=== PATIENT | female | born 1980 | race Caucasian/White ===

== ENCOUNTER 2017-06-27 10:26 | Inpatient (IN) | payer OTHER ==
[2017-06-27] MEDS ORDERED: PANTOPRAZOLE SODIUM 40 MG in SODIUM CHLORIDE 100 ML IVPB ONE (11:06)
[2017-06-27] MEDS ORDERED: KETOROLAC TROMETHAMINE 30 MG/1 ML VIAL IVPUSH ONE (11:06)
[2017-06-27] MEDS ORDERED: SODIUM CHLORIDE 1,000 ML IV STA ×2 (11:06→16:12)
[2017-06-27 11:08] LABS: HCG,QUALITATIVE URINE NEGATIVE; URINE APPEARANCE SLCLOUDY; URINE BILIRUBIN NEGATIVE (NEGATIVE); URINE BLOOD 3+ (NEGATIVE); URINE COLOR YELLOW; URINE GLUCOSE (UA) NEGATIVE (NEGATIVE); URINE KETONE NEGATIVE (NEGATIVE); URINE NITRITE NEGATIVE (NEGATIVE)
[2017-06-27] MEDS ORDERED: KETOROLAC TROMETHAMINE 30 MG/1 ML VIAL ONE (11:11)
[2017-06-27] MEDS ORDERED: PANTOPRAZOLE SODIUM 40 MG VIAL ONE (11:11)
[2017-06-27 11:19] LABS: URINE LEUK ESTERASE 2+ (NEGATIVE); URINE PROTEIN 1+ (NEGATIVE)
--- NOTE | 2017-06-27 11:29 | PDOC ---
History of Present Illness - General Chief Complaint: Pain, Acute Stated Complaint: ABDOMINAL PAIN Time Seen by Provider: 06/27/17 10:48 History Source: Patient Exam Limitations: No Limitations - History of Present Illness Travel History: No Initial Comments: 06/27/17 12:16 36-year-old female presents the ED with sudden onset of epigastric burning since 4 AM this morning. Patient states pain does not radiate and has not worsened since onset. Patient states symptoms have occurred before and was given Zantac by an emergency room to take "as needed ." Patient states last night at around 11 PM had pizza with pepperoni and denies alcohol intake. Patient does state symptoms do occur with etoh intake, so avoids it. Patient has no other complaints except for mild nausea. Timing/Duration: reports: constant Quality: reports: moderate, burning Abdominal Pain Onset Location: reports: epigastric Pain Radiation: reports: no radiation Aggravating Factors: improves with: None Alleviating Factors: improves with: None Past History - Travel Traveled outside of the country in the last 30 days: No - Past Medical History Allergies/Adverse Reactions: Allergies Allergy/AdvReac Type Severity Reaction Status Date / Time No Known Allergies Allergy Verified 06/27/17 10:38 Home Medications: Ambulatory Orders Loratadine [Allergy Relief] 10 mg PO PRN 06/27/17 Asthma: No Cancer: No Cardiac Disorders: No COPD: No Diabetes: No HTN: No Seizures: No Thyroid Disease: No - Immunization History Immunization Up to Date: Yes - Suicide/Smoking/Psychosocial Hx Smoking Status: No Smoking History: Never smoked Number of Cigarettes Smoked Daily: 0 Hx Alcohol Use: No Drug/Substance Use Hx: No Hx Substance Use Treatment: No Review of Systems - Review of Systems Able to Perform ROS?: Yes Constitutional: No: Symptoms Reported HEENTM: No: Symptoms Reported Respiratory: No: Symptoms reported Cardiac (ROS): No: Symptoms Reported ABD/GI: Yes: Nausea, Indigestion : No: Symptoms Reported Musculoskeletal: No: Symptoms Reported Integumentary: No: Symptoms Reported Neurological: No: Symptoms reported Endocrine: No: Symptoms Reported *Physical Exam - Vital Signs Last Vital Signs Temp Pulse Resp BP Pulse Ox 98.1 F 77 20 130/78 100 06/27/17 10:39 06/27/17 10:39 06/27/17 10:39 06/27/17 10:39 06/27/17 10:39 - Physical Exam General Appearance: Yes: Nourished, Appropriately Dressed. No: Apparent Distress Neck: positive: Normal Thyroid Respiratory/Chest: positive: Lungs Clear, Normal Breath Sounds. negative: Respiratory Distress, Accessory Muscle Use Cardiovascular: positive: Regular Rhythm, Regular Rate. negative: Murmur Gastrointestinal/Abdominal: positive: Soft, Tenderness (epigastric and moderately to right epigastric and RUQ, no rt lq , - murphys) Extremity: positive: Normal Capillary Refill Integumentary: positive: Normal Color, Warm, Moist Neurologic: positive: Motor Strength 5/5 (ambulatory) ED Treatment Course - LABORATORY CBC & Chemistry Diagram: 07/01/17 06:00 07/01/17 06:00 - ADDITIONAL ORDERS Additional order review: Laboratory Results 06/27/17 10:55 Urine HCG, Qual Negative Medical Decision Making - Critical Care Time Total Critical Care Time (minutes): 35 Critical Care Statement: The care of this patient involved high complexity decision making to prevent further life threatening deterioration of the patient 's condition and/or to evaluate & treat vital organ system(s) failure or risk of failure. - Medical Decision Making 06/27/17 12:03 Patient here with sudden onset of epigastric burning associated with nausea since 4 AM. Patient has tendernessto the epigastric/ right epigastric area and RUQ. Patient concerning for gastritis, PUD, reflux, pancreatitis, and cholecystitis. Patient ordered for labs, fluids, urinalysis, urine , Zofran, Protonix, and will reevaluate 06/27/17 12:44 Laboratory Tests 06/27/17 06/27/17 06/27/17 10:55 11:26 11:26 WBC 14.1 H Hgb 14.1 D Hct 42.5 D Neutrophils % 89.6 H Sodium 137 Potassium 4.4 Chloride 103 Carbon Dioxide 28 Anion Gap 6 L BUN 18 Creatinine 0.8 Random Glucose 127 H Total Bilirubin 1.8 H D AST 266 H ALT 248 H Lipase 248 Urine Protein 1+ H Urine Blood 3+ H Urine Urobilinogen 2.0 H Ur Leukocyte Esterase 2+ H Urine WBC (Auto) 12 Urine RBC (Auto) 46 Urine HCG, Qual Negative Patient's lab concerning for pancreatitis, acute hepatitis, cholecystitis. Patient ordered a gallbladder ultrasound and if unable to determine etiology, will order abdominal CT patient otherwise comfortable. 06/27/17 14:55 Ultrasound shows multiple small Gallstones leg posteriorly without evidence acute cholecystitis. The liver and pancreas appear unremarkable. Patient concern for cholangitis. Patient ordered for lactic acid, blood culture including acute hepatitis panel secondary to elevated LFTs. Microblog sent to hospitalist. 06/27/17 15:[address] Lea CLARKE in regards to labs the patient's clinical presentation. Case also discussed with OR nurse for Dr. Butler who is aware of surgical consultation 06/27/17 15:41 Case discussed with hospitalist and will be admitted to [facility] [place] inpatient. Awaiting lactic acid and remainder of labs. Patient comfortable after receiving IV morphine. 06/27/17 16:11 Laboratory Tests 06/27/17 15:00 Lactic Acid 2.1 H Patient ordered for IV fluids and Zosyn Dr. Tate here consulting with patient. *DC/Admit/Observation/Transfer Diagnosis at time of Disposition: Leukocytosis, Elevated LFTs, Abdominal pain, Sepsis Gallstone Qualifiers: Cholecystitis presence: without cholecystitis Biliary obstruction: with biliary obstruction Qualified Code(s): K80.21 - Calculus of gallbladder without cholecystitis with obstruction - Discharge Dispostion Admit: Yes - Referrals - Patient Instructions - Post Discharge Activity
[2017-06-27 11:30] LABS: EPI CELLS MODERATE /HPF (FEW); URINE BACTERIA RARE /hpf (NONE SEEN); URINE MUCUS RARE
[2017-06-27 11:30] LABS: BASO % 0.2 % (0-2.0); EOS % 0.2 % (0-4.5); HEMATOCRIT 42.5 % (32.4-45.2); HEMOGLOBIN 14.1 GM/dL (10.7-15.3); LYMPH % 5.9 % (8-40); MCH 31.9 pg (25.7-33.7); MCHC 33.2 g/dl (32.0-36.0); MEAN CELL VOLUME 95.8 fl (80-96); MEAN PLT VOLUME 7.5 fl (7.5-11.1); MONO % 4.1 % (3.8-10.2); NEUT % 89.6 % (42.8-82.8); PLATELET COUNT 322 K/MM3 (134-434); RBC 4.44 M/mm3 (3.60-5.2); RDW 12.2 % (11.6-15.6); WHITE BLOOD COUNT 14.1 K/mm3 (4.0-10.0)
[2017-06-27 11:59] LABS: ALBUMIN 4.2 g/dl (3.4-5.0); ALK PHOS 82 U/L (45-117); ANION GAP 6 (8-16); BILIRUBIN,TOTAL 1.8 mg/dL (0.2-1.0); BLOOD UREA NITROGEN 18 mg/dL (7-18); CHLORIDE 103 mmol/L (98-107); CO2 28 mmol/L (21-32); CREATININE 0.8 mg/dL (0.55-1.02); GLUCOSE,RANDOM 127 mg/dL (74-106); POTASSIUM 4.4 mmol/L (3.5-5.1); SGOT/AST 266 U/L (15-37); SGPT/ALT 248 U/L (12-78); SODIUM 137 mmol/L (136-145); TOT PROT 7.5 g/dl (6.4-8.2)
[2017-06-27 12:09] LABS: LIPASE 248 U/L (73-393)
[2017-06-27] MEDS ORDERED: LACTATED RINGERS SOLUTION 1,000 ML/1,000 ML INFUS.BAG IV SCH (12:30)
[2017-06-27] MEDS ORDERED: morphine CARPU-JECT 2 MG/1 ML DISP.SYRIN IVPUSH ONE (14:49)
[2017-06-27] MEDS ORDERED: MORPHINE SULFATE 10 MG/1 ML *VIAL ONE (14:57)
[2017-06-27 15:29] LABS: VENOUS PC02 42.6 mmHg (38-52); VENOUS PH 7.38 (7.32-7.42); VENOUS PO2 35.8 mmHg (28-48)
--- NOTE | 2017-06-27 15:56 | CON.GI ---
Consult Consult Specialty:: GI Reason for Consultation:: epigastric pain - History of Present Illness History of Present Illness: 36-year-old female presents the ED with sudden onset of epigastric burning since 4 AM this morning. It radiates to the back and associated with nausea. No vomiting, changes in bowels. Had chills. Reports no jaundice, dysphagia, odynophagia, or weight loss. Had similar episode few weeks ago and was evaluated at Health system with US, which was negative, per patient. On this admission she is found to have Leukocytosis, AST and ALT in 250 range with elevated bili and normal ALP. The US showed cholelithiasis w/o choledocolithiasis, free fluid arounf GB, or ductal dilatation. Normal Lipase and negative HCG. High BMI. No obvious risk factors in the history for viral, alcoholic, drug-related, or autoimmune liver disease. - History Source History Provided By: Patient Limitations to Obtaining History: No Limitations - Past Medical History Gastrointestinal: Yes: Constipation Psych: Yes: Anxiety. No: Addictions, Depression - Past Surgical History Past Surgical History: Yes: None - Alcohol/Substance Use Hx Alcohol Use: No History of Substance Use: reports: None - Smoking History Smoking history: Never smoked Aproximately how many cigarettes per day: 0 Home Medications - Allergies Allergies/Adverse Reactions: Allergies Allergy/AdvReac Type Severity Reaction Status Date / Time No Known Allergies Allergy Verified 06/27/17 10:38 - Home Medications Home Medications: Ambulatory Orders Loratadine [Allergy Relief] 10 mg PO PRN 06/27/17 Family Disease History - Family Disease History Family History: Unremarkable (non-contributory) Review of Systems Findings/Remarks: as per HPI, H&P Physical Exam-GI Vital Signs: Vital Signs Temperature 99.2 F 06/27/17 14:41 Pulse Rate 68 06/27/17 14:41 Respiratory Rate 18 06/27/17 14:41 Blood Pressure 145/89 06/27/17 14:41 O2 Sat by Pulse Oximetry (%) 98 06/27/17 14:41 Constitutional: Yes: Well Nourished, No Distress, Calm Eyes: Yes: Conjunctiva Clear HENT: Yes: Atraumatic Neck: Yes: Supple Cardiovascular: Yes: Regular Rate and Rhythm Respiratory: Yes: Regular Gastrointestinal Inspection: No: Ascites, Distention ...Auscultate: Yes: Normoactive Bowel Sounds ...Palpate: Yes: Tenderness (RUQ, but no obvious case's), Tenderness, Epigastium. No: Firm/Rigid, Guarding, Tenderness, Rebound Neurological: Yes: Alert, Oriented Labs: CBC, BMP 06/27/17 11:26 06/27/17 11:26 Laboratory Tests 06/27/17 06/27/17 06/27/17 10:55 11:26 11:26 WBC 14.1 H RBC 4.44 D Hgb 14.1 D Hct 42.5 D MCV 95.8 MCH 31.9 MCHC 33.2 RDW 12.2 Plt Count 322 D MPV 7.5 Neutrophils % 89.6 H Lymphocytes % 5.9 L D Monocytes % 4.1 Eosinophils % 0.2 Basophils % 0.2 VBG pH POC VBG pCO2 POC VBG pO2 Mixed VBG HCO3 Sodium 137 Potassium 4.4 Chloride 103 Carbon Dioxide 28 Anion Gap 6 L BUN 18 Creatinine 0.8 Creat Clearance w eGFR > 60 Random Glucose 127 H Lactic Acid Calcium 9.0 Total Bilirubin 1.8 H D AST 266 H ALT 248 H Alkaline Phosphatase 82 Total Protein 7.5 Albumin 4.2 Lipase 248 Urine Color Yellow Urine Appearance Slcloudy Urine pH 6.0 Ur Specific [place] 1.023 Urine Protein 1+ H Urine Glucose (UA) Negative Urine Ketones Negative Urine Blood 3+ H Urine Nitrite Negative Urine Bilirubin Negative Urine Urobilinogen 2.0 H Ur Leukocyte Esterase 2+ H Urine WBC (Auto) 12 Urine RBC (Auto) 46 Ur Epithelial Cells Moderate Urine Bacteria Rare Urine Mucus Rare Urine HCG, Qual Negative 06/27/17 06/27/17 15:00 15:00 WBC RBC Hgb Hct MCV MCH MCHC RDW Plt Count MPV Neutrophils % Lymphocytes % Monocytes % Eosinophils % Basophils % VBG pH 7.38 POC VBG pCO2 42.6 POC VBG pO2 35.8 Mixed VBG HCO3 24.4 Sodium Potassium Chloride Carbon Dioxide Anion Gap BUN Creatinine Creat Clearance w eGFR Random Glucose Lactic Acid 2.1 H Calcium Total Bilirubin AST ALT Alkaline Phosphatase Total Protein Albumin Lipase Urine Color Urine Appearance Urine pH Ur Specific [place] Urine Protein Urine Glucose (UA) Urine Ketones Urine Blood Urine Nitrite Urine Bilirubin Urine Urobilinogen Ur Leukocyte Esterase Urine WBC (Auto) Urine RBC (Auto) Ur Epithelial Cells Urine Bacteria Urine Mucus Urine HCG, Qual Imaging - Results Ultrasound: Report Reviewed Problem List - Problems (1) Abdominal pain Code(s): R10.9 - UNSPECIFIED ABDOMINAL PAIN (2) Elevated LFTs Code(s): R79.89 - OTHER SPECIFIED ABNORMAL FINDINGS OF BLOOD CHEMISTRY (3) Gallstone Code(s): K80.20 - CALCULUS OF GALLBLADDER W/O CHOLECYSTITIS W/O OBSTRUCTION (4) Leukocytosis Code(s): D72.829 - ELEVATED WHITE BLOOD CELL COUNT, UNSPECIFIED (5) Obesity (BMI 30.0-34.9) Code(s): E66.9 - OBESITY, UNSPECIFIED Assessment/Plan A 36 yof with RUQ/Epig tenderness, cholelithiasis, leukocytosis, mild hepatocellular/cholestasis pattern. R/o cholecystitis. choledocolithiasis, Upper GI ulcer disease. Possibly underlying NAFLD/BECERRA HIDA/MRCP Liver enzymes with ALP and direct bili, Lipase, CBC NPO/IVF Antiemetics and pain management PRN PPI po bid Empiric Abx (Zosyn, or levoflox/Flagyl) Sx evaluation EGD if HIDA/MRCP negative r/o Ulcer disease
[2017-06-27] MEDS ORDERED: ONDANSETRON 4 MG/2 ML VIAL IVPUSH PRN (16:12)
[2017-06-27] MEDS ORDERED: PIPERACILLIN/TAZOB 3.375 GM 3.375 GM in DEXTROSE 5%-WATER - 50 ML IVPB SCH (16:15)
[2017-06-27] MEDS ORDERED: PANTOPRAZOLE 40 MG TABLET (FP) PO ONE (16:15)
[2017-06-27] MEDS ORDERED: PIPERACILLIN/TAZOB 3.375 GM 3.375 GM in DEXTROSE 5%-WATER - 100 ML IVPB ONE (16:17)
[2017-06-27] MEDS ORDERED: PIPERACILLIN/TAZOB 3.375 GM 3.375 GM/50 ML BAG IVPB ONE (16:46)
[2017-06-27] MEDS ORDERED: PANTOPRAZOLE 40 MG TABLET (FP) ONE (17:03)
[2017-06-27] MEDS ORDERED: SENNOSIDES 8.6MG TABLET (FP) PO PRN (17:28)
[2017-06-27] MEDS ORDERED: DOCUSATE SODIUM 100 MG CAPSULE (FP) PO PRN (17:28)
[2017-06-27] MEDS ORDERED: MORPHINE SULFATE 10 MG/1 ML *VIAL IVPUSH PRN (17:34)
--- NOTE | 2017-06-27 17:40 | HP ---
CHIEF COMPLAINT: PCP: Dr. Olivarez HISTORY OF PRESENT ILLNESS: 36 yof with PMHx of ?GERD, constipation was in her USOH this AM, on her way to work when had sudden onset of epigastric 'burning' pain radiating to her back associated with nausea, prompting her to come to ED. Episode lasted a few hours and finally resolved after pain medications in the ED. Denies any fevers, chills , vomiting, diarrhea, sick contacts or recent antibiotics. Had a similar episode 2 months ago when was seen in ED and sent home after morphine. No prior EGD or colonoscopy. However does report reflux symptoms with alcohol, no recent intake, Denies any NSAIDs use. No h/o dyspepsia with fatty food intake. Last meal yesterday around 10 PM when had a pepperoni pizza and symptoms onset around 5 AM today. Currently feels better after receiving morphine in the ED. ER course was notable for: (1) Leucocytosis, abnormal LFTs, lactate 2.1 (2) Abdominal ultrasound with cholelithiasis (3) s/p toradol 30 mg IV x 1, morphine 4 mg IV x 1, IVF bolus and protonix Recent Travel: denies PAST MEDICAL HISTORY: suspected GERD, ?food allergy, reports intermittent rash with eye swelling once in 2 months to unclear food allergen, plans to see cleaning specialist soon PAST SURGICAL HISTORY: denies Social History: Smoking:no Alcohol: none recently, occasional but stopped given GERD Drugs: denies Works in breakfast room in a hotel in [place] Family History: "cancer", positive colon cancer in aunt at 61, at 61 Allergies No Known Allergies Allergy (Verified 06/27/17 10:38) Being worked for possible food allergy HOME MEDICATIONS: Home Medications Medication Instructions Recorded Loratadine [Allergy Relief] 10 mg PO PRN 06/27/17 REVIEW OF SYSTEMS 12 point ROS done, neg except mentioned in HPI PHYSICAL EXAMINATION Vital Signs - 24 hr 06/27/17 06/27/17 10:39 14:41 Temperature 98.1 F 99.2 F Pulse Rate 77 Pulse Rate [ 68 Right Radial] Respiratory 20 18 Rate Blood Pressure 130/78 Blood Pressure 145/89 [Left Arm] O2 Sat by Pulse 100 98 Oximetry (%) GENERAL: Awake, alert, and fully oriented, in no acute distress. HEAD: Normal with no signs of trauma. EYES: Pupils equal, round and reactive to light, extraocular movements intact, sclera anicteric, conjunctiva clear. No lid lag. EARS, NOSE, THROAT: Ears normal, nares patent, oropharynx clear without exudates. Moist mucous membranes. NECK: soft, supple, no JVD LUNGS: Breath sounds equal, clear to auscultation bilaterally. No wheezes, and no crackles. No accessory muscle use. HEART:S1S2 regular rate/rhythm ABDOMEN: soft, obese, epigastric tenderness, Mild tenderness along medial RUQ, liver margin felt below right costal margin, no clear Thornton's sign elicited, no voluntary or involuntary guarding or rigidity, positive bowel sounds MUSCULOSKELETAL: Normal range of motion at all joints. No bony deformities or tenderness. No CVA tenderness. UPPER EXTREMITIES: 2+ pulses, warm, well-perfused. No cyanosis. No clubbing. No peripheral edema. LOWER EXTREMITIES: 2+ pulses, warm, well-perfused. No calf tenderness. No peripheral edema. NEUROLOGICAL: Cranial nerves II-XII intact. Normal speech. PSYCHIATRIC: Cooperative. Good eye contact. Appropriate mood and affect. SKIN: Warm, dry, normal turgor, no rashes or lesions noted, normal capillary refill. Laboratory Results - last 24 hr 06/27/17 06/27/17 06/27/17 10:55 11:26 11:26 WBC 14.1 H RBC 4.44 D Hgb 14.1 D Hct 42.5 D MCV 95.8 MCH 31.9 MCHC 33.2 RDW 12.2 Plt Count 322 D MPV 7.5 Neutrophils % 89.6 H Lymphocytes % 5.9 L D Monocytes % 4.1 Eosinophils % 0.2 Basophils % 0.2 VBG pH POC VBG pCO2 POC VBG pO2 Mixed VBG HCO3 Sodium 137 Potassium 4.4 Chloride 103 Carbon Dioxide 28 Anion Gap 6 L BUN 18 Creatinine 0.8 Creat Clearance w eGFR > 60 Random Glucose 127 H Lactic Acid Calcium 9.0 Total Bilirubin 1.8 H D AST 266 H ALT 248 H Alkaline Phosphatase 82 Total Protein 7.5 Albumin 4.2 Lipase 248 Urine Color Yellow Urine Appearance Slcloudy Urine pH 6.0 Ur Specific [place] 1.023 Urine Protein 1+ H Urine Glucose (UA) Negative Urine Ketones Negative Urine Blood 3+ H Urine Nitrite Negative Urine Bilirubin Negative Urine Urobilinogen 2.0 H Ur Leukocyte Esterase 2+ H Urine WBC (Auto) 12 Urine RBC (Auto) 46 Ur Epithelial Cells Moderate Urine Bacteria Rare Urine Mucus Rare Urine HCG, Qual Negative 06/27/17 06/27/17 15:00 15:00 WBC RBC Hgb Hct MCV MCH MCHC RDW Plt Count MPV Neutrophils % Lymphocytes % Monocytes % Eosinophils % Basophils % VBG pH 7.38 POC VBG pCO2 42.6 POC VBG pO2 35.8 Mixed VBG HCO3 24.4 Sodium Potassium Chloride Carbon Dioxide Anion Gap BUN Creatinine Creat Clearance w eGFR Random Glucose Lactic Acid 2.1 H Calcium Total Bilirubin AST ALT Alkaline Phosphatase Total Protein Albumin Lipase Urine Color Urine Appearance Urine pH Ur Specific [place] Urine Protein Urine Glucose (UA) Urine Ketones Urine Blood Urine Nitrite Urine Bilirubin Urine Urobilinogen Ur Leukocyte Esterase Urine WBC (Auto) Urine RBC (Auto) Ur Epithelial Cells Urine Bacteria Urine Mucus Urine HCG, Qual Abdominal ultrasound - posteriorly layered gallstones, liver at upper limit of normal with homegeneous echotexture, normal CBD 5.5 cm, no intrahepatic biliary ductal dilatation, no evidence of cholecystitis ASSESSMENT/PLAN: 36 yof with epigastric/RUQ pain, abnormal LFTs and Abdominal ultrasound with choledocholithiasis -Abdominal Pain , cholangitis vs acute cholecystitis vs choledocholithiasis with passed stone vs PUD -Abnormal LFTs, -Leucocytosis, infectious process vs stress response -Lactic acidosis Plan: GI consult with Dr. Tate appreciated. HIDA/MRCP. Surgery consult with Dr. Butler. NPO for now. Start ceftriaxone/flagyl. Blood cultures sent in ED, follow up. Follow up Hepatitis panel, check drug screen. Trend LFTs. Add direct bilirubin to labs. Serial abdominal exams. NPO, IVF, pain control with low dose morphine prn. Protonix IV BID DVTPPX, low risk, SCDs, start lovenox in 48 hours if non ambulatory. Dispo anticipate atleast 2 midnight stays given concerns for cholangitis vs cholecystitis, need for IV antibiotics, fluids, additional work up and closer monitoring. Plan discussed with patient in detail with patient and all questions answered. total admit time spent including patient visit, discussion with ED, Dr Tate and co-ordination of care 65 min. Visit type - Emergency Visit Emergency Visit: Yes ED Registration Date: 06/27/17 Care time: The patient presented to the Emergency Department on the above date and was hospitalized for further evaluation of their emergent condition. - New Patient This patient is new to me today: Yes Date on this admission: 06/27/17 - Critical Care Critical Care patient: No
[2017-06-27] MEDS ORDERED: CEFTRIAXONE 1 GM/50 ML BAG ONE (18:08)
[2017-06-27] MEDS: CEFTRIAXONE 1 G/50 ML PREMIX 50 ML IVPB SCH (18:12)
[2017-06-27 18:25] VITALS: BMI 30.2
[2017-06-27 18:28] LABS: ALBUMIN 3.2 g/dl (3.4-5.0); BILIRUBIN,DIRECT 1.3 mg/dL (0.0-0.2); BILIRUBIN,TOTAL 2.4 mg/dL (0.2-1.0); TOT PROT 6.1 g/dl (6.4-8.2)
[2017-06-27] MEDS: DEXTROSE 5%-NORMAL SALINE 1,000 ML IV SCH (18:39)
[2017-06-27 20:14] LABS: COCAINE, UR NEGATIVE ng/ml (CUTOFF=300); METHADONE, UR NEGATIVE ng/ml (CUTOFF=300); PHENCYCLIDINE,URINE NEGATIVE ng/ml (CUTOFF=25); URINE AMPHETAMINES NEGATIVE ng/ml (CUTOFF=500); URINE BARBITURATES NEGATIVE ng/ml (CUTOFF=200); URINE BENZODIAZEPINES NEGATIVE ng/ml (CUTOFF=200)
[2017-06-27 20:17] LABS: OPIATES, URI POSITIVE ng/ml (CUTOFF=300)
[2017-06-27] MEDS ORDERED: PIPERACIL/TAZOB 3.375 GM 3.375 GM/50 ML PREMIX IVPB SCH (22:00)
[2017-06-27] MEDS: PANTOPRAZOLE SODIUM 40 MG VIAL IVPUSH SCH (22:23)
[2017-06-28] MEDS ORDERED: PIPERACILLIN/TAZOB 3.375 GM 3.375 GM in DEXTROSE 5%-WATER - 100 ML IVPB ONE (04:00)
[2017-06-28] MEDS: DEXTROSE 5%-NORMAL SALINE 1,000 ML IV SCH ×3 (06:09→21:44)
[2017-06-28 07:19] LABS: ALBUMIN 3.1 g/dl (3.4-5.0); ALK PHOS 131 U/L (45-117); AMYLASE 65 U/L (25-115); ANION GAP 8 (8-16); BILIRUBIN,DIRECT 1.9 mg/dL (0.0-0.2); BILIRUBIN,TOTAL 4.1 mg/dL (0.2-1.0); BLOOD UREA NITROGEN 9 mg/dL (7-18); CALCIUM 7.7 mg/dL (8.5-10.1); CHLORIDE 106 mmol/L (98-107); CO2 26 mmol/L (21-32); CREATININE 0.7 mg/dL (0.55-1.02); GLUCOSE,RANDOM 117 mg/dL (74-106); PHOSPHOROUS 2.5 mg/dL (2.5-4.9); POTASSIUM 4.1 mmol/L (3.5-5.1); SODIUM 140 mmol/L (136-145); TOT PROT 5.7 g/dl (6.4-8.2)
[2017-06-28 07:20] LABS: BASO % 0.4 % (0-2.0); EOS % 2.6 % (0-4.5); HEMATOCRIT 36.9 % (32.4-45.2); HEMOGLOBIN 12.8 GM/dL (10.7-15.3); MCH 33.4 pg (25.7-33.7); MCHC 34.7 g/dl (32.0-36.0); MEAN CELL VOLUME 96.3 fl (80-96); MEAN PLT VOLUME 8.2 fl (7.5-11.1); MONO % 7.6 % (3.8-10.2); NEUT % 70.4 % (42.8-82.8); PLATELET COUNT 291 K/MM3 (134-434); RBC 3.84 M/mm3 (3.60-5.2); RDW 12.3 % (11.6-15.6); WHITE BLOOD COUNT 5.3 K/mm3 (4.0-10.0)
[2017-06-28 07:29] LABS: SGOT/AST 402 U/L (15-37); SGPT/ALT 722 U/L (12-78)
[2017-06-28 07:38] LABS: INR 1.23 (0.82-1.09); PROTHROMBIN TIME (PATIENT) 13.9 SEC (9.98-11.88)
--- NOTE | 2017-06-28 07:55 | CONSULT ---
- Consultation REQUESTING PROVIDER: Shon Carrie - General Surgery CONSULT REQUEST: We have been asked to surgically evaluate this patient for abd pain PCP: Kristian Guevara NP HPI: Called to sarah 36 yo female with PMHx noted below. C/o acute onset of epigastric tenderness/burning that started around 4AM. States it radiates to her back and has nausea but no vomiting. Reports chills. Last meal eaten was pizza around 10PM last night. Patient informs me she was recently seen/ evaluated at [facility] for same condition as above. During that ER visit, she states she had lab work and U/S all of which were negative. On this admission she is found to have Leukocytosis, AST and ALT in 250 range with elevated bili and normal ALP. Normal Lipase and negative HCG. She had an US study while in ER --> showed cholelithiasis w/o choledocolithiasis, free fluid arounf GB, or ductal dilatation. Denies CP, SOB, POZO, weak, dizzy, palpitations, changes in bowels. Denies jaundice, dysphagia, anorexia, weight loss. Denies change in color of urine. PMHx: Epigastric burning sensation, Constipation, Anxiety PSHx: Denies. Home Meds: Loratadine Allergies: NKDA REVIEW OF SYSTEMS All systems reviewed and considered negative except for what's contained in HPI PHYSICAL EXAM: GENERAL: Awake, alert, and fully oriented, in NAD HEAD: NC. AT. EYES: PERRL, sclera anicteric, conjunctiva clear. NECK: Normal ROM, supple without lymphadenopathy, JVD, or masses. LUNGS: CTA bilat anteriorly HEART: RRR ABD: Soft, NT. ND. Normoactive bowel sounds, no guarding, no rebound, no masses. Negative Thornton's. No organomegaly. MUSCULOSKELETAL: No CVAT bilat UE: 2+ pulses, warm, well-perfused. No cyanosis. Cap refill <2 seconds. No peripheral edema. LE: 2+ pulses, warm, well-perfused. No calf tenderness. No peripheral edema. NEUROL: Normal speech, gait not observed. PSYCH: Cooperative. Good eye contact. Appropriate mood and affect. SKIN: Warm, dry, normal turgor, no rashes or lesions noted. Last Vital Signs Temp Pulse Resp BP Pulse Ox 98.3 F 69 18 115/60 96 06/28/17 01:58 06/28/17 01:58 06/28/17 01:58 06/28/17 01:58 06/27/17 21:00 CBC, BMP 06/28/17 06:30 06/28/17 06:30 Hepatic Panel Total Bilirubin 4.1 mg/dL (0.2-1.0) H D 06/28/17 06:30 Direct Bilirubin 1.9 mg/dL (0.0-0.2) H 06/28/17 06:30 AST 402 U/L (15-37) H 06/28/17 06:30 ALT 722 U/L (12-78) H 06/28/17 06:30 Alkaline Phosphatase 131 U/L (45-117) H 06/28/17 06:30 Albumin 3.1 g/dl (3.4-5.0) L 06/28/17 06:30 Amylase & Lipase 06/27/17 06/27/17 06/28/17 06/28/17 11:26 17:40 06:30 06:30 Total Amylase 65 Lipase 248 216 221 Test 06/27/17 10:55 Urine HCG, Qual Negative Problem List - Problems (1) Abdominal pain Assessment/Plan: Recommend HIDA Monitor LFTs, CBC NPO/IVF Antiemetics and pain management PRN GI / DVT ppx IV ABX EGD if HIDA/MRCP negative r/o Ulcer disease Surgery Team to continue following Above plan discussed with Dr. Butler and agrees. Code(s): R10.9 - UNSPECIFIED ABDOMINAL PAIN (2) Elevated LFTs Code(s): R79.89 - OTHER SPECIFIED ABNORMAL FINDINGS OF BLOOD CHEMISTRY (3) Gallstone Code(s): K80.20 - CALCULUS OF GALLBLADDER W/O CHOLECYSTITIS W/O OBSTRUCTION (4) Leukocytosis Code(s): D72.829 - ELEVATED WHITE BLOOD CELL COUNT, UNSPECIFIED Visit type - Case Type Case Type: ED Admission - Emergency Emergency Visit: Yes ED Registration Date: 06/27/17 Care time: The patient presented to the Emergency Department on the above date and was hospitalized for further evaluation of their emergent condition. - New patient This patient is new to me today: Yes Date on this admission: 06/28/17
--- NOTE | 2017-06-28 08:53 | PN ---
Progress Note (short form) - Note Progress Note: Attending Surgeon Patient seen and evaluated; concur w/ a/p as outlined by JUANA Burgos. Shon Butler MD FACS
[2017-06-28] MEDS: CEFTRIAXONE 1 G/50 ML PREMIX 50 ML IVPB SCH (12:23)
[2017-06-28] MEDS: PANTOPRAZOLE SODIUM 40 MG VIAL IVPUSH SCH ×2 (12:24→21:43)
[2017-06-28] MEDS ORDERED: ACETAMINOPHEN 1000 MG/100 ML VIAL (NON FORMULARY) IVPB ONE (12:49)
--- NOTE | 2017-06-28 12:58 | PN ---
Physical Exam: SUBJECTIVE: Patient seen and examined OBJECTIVE: + jaundiced sclerea Vital Signs Period Temp Pulse Resp BP Sys/Paetl Pulse Ox Last 24 Hr 98.3 F-99.2 F 57-72 16-18 109-145/60-89 96-98 GENERAL: The patient is awake, alert, and fully oriented, in no acute distress. HEAD: Normal with no signs of trauma. EYES: PERRL, extraocular movements intact, sclera anicteric, conjunctiva clear. No ptosis. ENT:+ jaundiced sclrea NECK: Trachea midline, full range of motion, supple. HEART: Regular rate and rhythm, S1, S2 without murmur, rub or gallop. ABDOMEN: Soft, nontender, nondistended, normoactive bowel sounds, denies abdominal pain, NPO EXTREMITIES: 2+ pulses, warm, well-perfused, no edema. NEUROLOGICAL: Normal speech, gait not observed. PSYCH: Normal mood, normal affect. SKIN: Warm, dry, normal turgor, no rashes or lesions noted Laboratory Results - last 24 hr 06/27/17 06/27/17 06/27/17 15:00 15:00 17:40 WBC RBC Hgb Hct MCV MCH MCHC RDW Plt Count MPV Neutrophils % Lymphocytes % Monocytes % Eosinophils % Basophils % PT with INR INR VBG pH 7.38 POC VBG pCO2 42.6 POC VBG pO2 35.8 Mixed VBG HCO3 24.4 Sodium Potassium Chloride Carbon Dioxide Anion Gap BUN Creatinine Creat Clearance w eGFR POC Glucometer Random Glucose Lactic Acid 2.1 H 1.2 Calcium Phosphorus Total Bilirubin Direct Bilirubin AST ALT Alkaline Phosphatase Total Protein Albumin Total Amylase Lipase Opiates Screen Methadone Screen Barbiturate Screen Phencyclidine Screen Ur Amphetamines Screen MDMA (Ecstasy) Screen Benzodiazepines Screen Cocaine Screen U Marijuana (THC) Screen 06/27/17 06/27/17 06/27/17 17:40 19:00 19:15 WBC RBC Hgb Hct MCV MCH MCHC RDW Plt Count MPV Neutrophils % Lymphocytes % Monocytes % Eosinophils % Basophils % PT with INR INR VBG pH POC VBG pCO2 POC VBG pO2 Mixed VBG HCO3 Sodium Potassium Chloride Carbon Dioxide Anion Gap BUN Creatinine Creat Clearance w eGFR POC Glucometer Random Glucose Lactic Acid Calcium Phosphorus Total Bilirubin 2.4 H D Direct Bilirubin 1.3 H 1.3 H AST 504 H ALT 548 H Alkaline Phosphatase 86 Total Protein 6.1 L Albumin 3.2 L Total Amylase Lipase 216 Opiates Screen Positive Methadone Screen Negative Barbiturate Screen Negative Phencyclidine Screen Negative Ur Amphetamines Screen Negative MDMA (Ecstasy) Screen Negative Benzodiazepines Screen Negative Cocaine Screen Negative U Marijuana (THC) Screen Negative 06/28/17 06/28/17 06/28/17 06:04 06:30 06:30 WBC 5.3 D RBC 3.84 Hgb 12.8 Hct 36.9 MCV 96.3 H MCH 33.4 MCHC 34.7 RDW 12.3 Plt Count 291 MPV 8.2 Neutrophils % 70.4 D Lymphocytes % 19.0 D Monocytes % 7.6 D Eosinophils % 2.6 D Basophils % 0.4 PT with INR INR VBG pH POC VBG pCO2 POC VBG pO2 Mixed VBG HCO3 Sodium Potassium Chloride Carbon Dioxide Anion Gap BUN Creatinine Creat Clearance w eGFR POC Glucometer 128 Random Glucose Lactic Acid Calcium Phosphorus Total Bilirubin Direct Bilirubin AST ALT Alkaline Phosphatase Total Protein Albumin Total Amylase Lipase 221 Opiates Screen Methadone Screen Barbiturate Screen Phencyclidine Screen Ur Amphetamines Screen MDMA (Ecstasy) Screen Benzodiazepines Screen Cocaine Screen U Marijuana (THC) Screen 06/28/17 06/28/17 06:30 06:30 WBC RBC Hgb Hct MCV MCH MCHC RDW Plt Count MPV Neutrophils % Lymphocytes % Monocytes % Eosinophils % Basophils % PT with INR 13.90 H INR 1.23 H VBG pH POC VBG pCO2 POC VBG pO2 Mixed VBG HCO3 Sodium 140 Potassium 4.1 Chloride 106 Carbon Dioxide 26 Anion Gap 8 BUN 9 Creatinine 0.7 Creat Clearance w eGFR > 60 POC Glucometer Random Glucose 117 H Lactic Acid Calcium 7.7 L Phosphorus 2.5 Total Bilirubin 4.1 H D Direct Bilirubin 1.9 H AST 402 H ALT 722 H Alkaline Phosphatase 131 H Total Protein 5.7 L Albumin 3.1 L Total Amylase 65 Lipase Opiates Screen Methadone Screen Barbiturate Screen Phencyclidine Screen Ur Amphetamines Screen MDMA (Ecstasy) Screen Benzodiazepines Screen Cocaine Screen U Marijuana (THC) Screen Active Medications Generic Name Dose Route Start Last Admin Trade Name Freq PRN Reason Stop Dose Admin Docusate Sodium 100 mg 06/27/17 17:28 Colace - PO Q12H PRN CONSTIPATION CEFTRIAXONE 1 G/50 ML PREMIX 50 mls @ 100 mls/hr 06/27/17 17:30 06/28/17 12: 23 Ceftriaxone 1 Gm-D5w Bag IVPB 100 mls/hr DAILY [facility] Administration Metronidazole 500 mg in 100 mls @ 100 mls/hr 06/27/17 18:00 06/28/17 12:23 Flagyl 500mg Premixed Ivpb - IVPB 100 mls/hr Q8H-IV [facility] Administration Dextrose/Sodium Chloride 1,000 mls @ 125 mls/hr 06/27/17 17:30 06/28/17 06:09 D5-Ns - IV 125 mls/hr ASDIR [facility]ON Administration Morphine Sulfate 1 mg 06/27/17 17:34 Morphine Injection - IVPUSH Q4H PRN PAIN LEVEL 6-10 Ondansetron HCl 4 mg 06/27/17 16:12 Zofran Injection IVPUSH Q4H PRN NAUSEA AND/OR VOMITING Pantoprazole Sodium 40 mg 06/27/17 22:00 06/28/17 12:24 Protonix Iv IVPUSH 40 mg BID [facility] Administration Senna 2 tab 06/27/17 17:28 Senna - PO HS PRN CONSTIPATION ASSESSMENT/PLAN: Patient is a 36 year old female with a significant past medical history of GERD and constipation. She was admitted on 06/27/2017 with RUQ abdominal pain, nausea and vomiting, abnormal LFTs. An abdominal u/s shows choledocholithiasis. On exam, patient states she feels better, denies abdominal pain and states her abdomen is less distended Hida Scan 06/28/2017: Filling of the gallbladder excludes acute cystic duct obstruction. No biliary enteric transit of tracer after 150 minutes of imaging suspicious for CBD obstruction. GI: Abdominal Pain, resolving Hida scan suspicious for CBD obstruction GI and surgery following NPO, IVF, pain management On Ceftriaxone and Flagyl Blood cultures pending Hepatitis panel, check drug screen Trend Lfts, monitor labs Trend bilirubin Control pain with morphine Protonix IV BID F.E.N. Fluids: D5 1/2 NS @ 125cc/hr Electrolytes: monitor and replete Nutrition: NPO, ice chips prn Prophylaxis: DVT: SCDs GI: Protonix Disposition: full code.
[2017-06-29 07:50] LABS: ALBUMIN 3.2 g/dl (3.4-5.0); ALK PHOS 136 U/L (45-117); ANION GAP 7 (8-16); BILIRUBIN,TOTAL 2.8 mg/dL (0.2-1.0); BLOOD UREA NITROGEN 7 mg/dL (7-18); CALCIUM 7.9 mg/dL (8.5-10.1); CHLORIDE 106 mmol/L (98-107); CO2 26 mmol/L (21-32); CREATININE 0.7 mg/dL (0.55-1.02); GLUCOSE,RANDOM 125 mg/dL (74-106); POTASSIUM 3.7 mmol/L (3.5-5.1); SGOT/AST 131 U/L (15-37); SODIUM 139 mmol/L (136-145); TOT PROT 6.1 g/dl (6.4-8.2)
[2017-06-29 08:15] LABS: BASO % 0.6 % (0-2.0); EOS % 5.1 % (0-4.5); HEMATOCRIT 37.8 % (32.4-45.2); HEMOGLOBIN 12.9 GM/dL (10.7-15.3); LYMPH % 18.8 % (8-40); MCH 32.7 pg (25.7-33.7); MEAN CELL VOLUME 96.3 fl (80-96); MEAN PLT VOLUME 7.9 fl (7.5-11.1); MONO % 6.4 % (3.8-10.2); NEUT % 69.1 % (42.8-82.8); PLATELET COUNT 259 K/MM3 (134-434); RBC 3.93 M/mm3 (3.60-5.2); RDW 12.5 % (11.6-15.6)
[2017-06-29 08:24] LABS: SGPT/ALT 524 U/L (12-78)
--- NOTE | 2017-06-29 09:27 | PN ---
Progress Note, Physician History of Present Illness: No events. Mild nausea off/on. MRCP images reviewed. ERCP planned this am, discussed with the patient. - Current Medication List Current Medications: Active Medications Docusate Sodium (Colace -) 100 mg PO Q12H PRN PRN Reason: CONSTIPATION CEFTRIAXONE 1 G/50 ML PREMIX (Ceftriaxone 1 Gm-D5w Bag) 50 mls @ 100 mls/hr IVPB DAILY [facility] Last Admin: 06/28/17 12:23 Dose: 100 mls/hr Metronidazole (Flagyl 500mg Premixed Ivpb -) 500 mg in 100 mls @ 100 mls/hr IVPB Q8H-IV [facility] Last Admin: 06/29/17 01:45 Dose: 100 mls/hr Dextrose/Sodium Chloride (D5-Ns -) 1,000 mls @ 125 mls/hr IV ASDIR [facility] Last Admin: 06/28/17 21:44 Dose: 125 mls/hr Morphine Sulfate (Morphine Injection -) 1 mg IVPUSH Q4H PRN PRN Reason: PAIN LEVEL 6-10 Ondansetron HCl (Zofran Injection) 4 mg IVPUSH Q4H PRN PRN Reason: NAUSEA AND/OR VOMITING Pantoprazole Sodium (Protonix Iv) 40 mg IVPUSH BID [facility] Last Admin: 06/28/17 21:43 Dose: 40 mg Senna (Senna -) 2 tab PO HS PRN PRN Reason: CONSTIPATION - Objective Vital Signs: Vital Signs Temperature 98.3 F 06/29/17 06:00 Pulse Rate 63 06/29/17 06:00 Respiratory Rate 18 06/29/17 06:00 Blood Pressure 112/72 06/29/17 06:00 O2 Sat by Pulse Oximetry (%) 97 06/28/17 21:00 Constitutional: Yes: Well Nourished, No Distress, Calm Eyes: Yes: Sclera Icterus HENT: Yes: Atraumatic Neck: Yes: Supple Cardiovascular: Yes: Regular Rate and Rhythm Respiratory: Yes: Regular Gastrointestinal: Yes: Soft. No: Melena, Rectal Bleeding, Tenderness, Vomiting Neurological: Yes: Alert, Oriented Labs: CBC, BMP 06/29/17 06:45 06/29/17 06:45 INR, PTT INR 1.23 (0.82-1.09) H 06/28/17 06:30 Abnormal Lab Results 06/29/17 06/29/17 06:45 06:45 MCV 96.3 H Eosinophils % 5.1 H D Anion Gap 7 L Random Glucose 125 H Calcium 7.9 L Total Bilirubin 2.8 H D AST 131 H ALT 524 H Alkaline Phosphatase 136 H Total Protein 6.1 L Albumin 3.2 L Problem List - Problems (1) Abdominal pain Code(s): R10.9 - UNSPECIFIED ABDOMINAL PAIN (2) Elevated LFTs Code(s): R79.89 - OTHER SPECIFIED ABNORMAL FINDINGS OF BLOOD CHEMISTRY (3) Gallstone Code(s): K80.20 - CALCULUS OF GALLBLADDER W/O CHOLECYSTITIS W/O OBSTRUCTION (4) Leukocytosis Code(s): D72.829 - ELEVATED WHITE BLOOD CELL COUNT, UNSPECIFIED (5) Obesity (BMI 30.0-34.9) Code(s): E66.9 - OBESITY, UNSPECIFIED Assessment/Plan Cholelithiasis, choledololithiasis. ERCP this am Sx follow up
[2017-06-29] MEDS: CEFTRIAXONE 1 G/50 ML PREMIX 50 ML IVPB SCH (09:35)
[2017-06-29] MEDS: PANTOPRAZOLE SODIUM 40 MG VIAL IVPUSH SCH ×2 (09:35→21:17)
[2017-06-29] MEDS: DEXTROSE 5%-NORMAL SALINE 1,000 ML IV SCH (09:38)
--- NOTE | 2017-06-29 10:05 | PN ---
Physical Exam: SUBJECTIVE: Patient seen and examined. Feels better, denies any pain or discomfort. Wants to drink fluids. OBJECTIVE: liquid diet tonight, NPO for lap jeny s/p ERCP with removal of stone Vital Signs Period Temp Pulse Resp BP Sys/Patel Pulse Ox Last 24 Hr 98.1 F-98.5 F 60-70 16-20 112-124/51-72 97 GENERAL: The patient is awake, alert, and fully oriented, in no acute distress. HEAD: Normal with no signs of trauma. EYES: PERRL, extraocular movements intact, sclera anicteric, conjunctiva clear. No ptosis. ENT:+ jaundiced sclrea NECK: Trachea midline, full range of motion, supple. HEART: Regular rate and rhythm, S1, S2 without murmur, rub or gallop. ABDOMEN: Soft, nontender, nondistended, normoactive bowel sounds, denies abdominal pain, NPO EXTREMITIES: 2+ pulses, warm, well-perfused, no edema. NEUROLOGICAL: Normal speech, gait not observed. PSYCH: Normal mood, normal affect. SKIN: Warm, dry, normal turgor, no rashes or lesions noted Laboratory Results - last 24 hr 06/27/17 06/28/17 06/29/17 15:00 17:30 01:23 WBC RBC Hgb Hct MCV MCH MCHC RDW Plt Count MPV Neutrophils % Lymphocytes % Monocytes % Eosinophils % Basophils % Sodium Potassium Chloride Carbon Dioxide Anion Gap BUN Creatinine Creat Clearance w eGFR POC Glucometer 88 109 Random Glucose Calcium Magnesium Total Bilirubin AST ALT Alkaline Phosphatase Total Protein Albumin Hepatitis A IgM Ab Negative Hep Bs Antigen Negative Hep B Core IgM Ab Negative Hepatitis C Antibody 0.1 06/29/17 06/29/17 06:45 06:45 WBC 6.0 RBC 3.93 Hgb 12.9 Hct 37.8 MCV 96.3 H MCH 32.7 MCHC 34.0 RDW 12.5 Plt Count 259 MPV 7.9 Neutrophils % 69.1 Lymphocytes % 18.8 Monocytes % 6.4 Eosinophils % 5.1 H D Basophils % 0.6 Sodium 139 Potassium 3.7 Chloride 106 Carbon Dioxide 26 Anion Gap 7 L BUN 7 Creatinine 0.7 Creat Clearance w eGFR > 60 POC Glucometer Random Glucose 125 H Calcium 7.9 L Magnesium 2.0 Total Bilirubin 2.8 H D AST 131 H ALT 524 H Alkaline Phosphatase 136 H Total Protein 6.1 L Albumin 3.2 L Hepatitis A IgM Ab Hep Bs Antigen Hep B Core IgM Ab Hepatitis C Antibody Active Medications Generic Name Dose Route Start Last Admin Trade Name Jazmyn PRN Reason Stop Dose Admin Docusate Sodium 100 mg 06/27/17 17:28 Colace - PO Q12H PRN CONSTIPATION CEFTRIAXONE 1 G/50 ML PREMIX 50 mls @ 100 mls/hr 06/27/17 17:30 06/29/17 09: 35 Ceftriaxone 1 Gm-D5w Bag IVPB 100 mls/hr DAILY [facility] Administration Metronidazole 500 mg in 100 mls @ 100 mls/hr 06/27/17 18:00 06/29/17 09:35 Flagyl 500mg Premixed Ivpb - IVPB 100 mls/hr Q8H-IV [facility] Administration Dextrose/Sodium Chloride 1,000 mls @ 125 mls/hr 06/27/17 17:30 06/29/17 09:38 D5-Ns - IV 125 mls/hr ASDIR [facility] Administration Morphine Sulfate 1 mg 06/27/17 17:34 Morphine Injection - IVPUSH Q4H PRN PAIN LEVEL 6-10 Ondansetron HCl 4 mg 06/27/17 16:12 Zofran Injection IVPUSH Q4H PRN NAUSEA AND/OR VOMITING Pantoprazole Sodium 40 mg 06/27/17 22:00 06/29/17 09:35 Protonix Iv IVPUSH 40 mg BID [facility] Administration Senna 2 tab 06/27/17 17:28 Senna - PO HS PRN CONSTIPATION ASSESSMENT/PLAN: Patient is a 36 year old female with a significant past medical history of GERD and constipation. She was admitted on 06/27/2017 with RUQ abdominal pain, nausea and vomiting, abnormal LFTs. An abdominal u/s shows choledocholithiasis. On exam, patient states she feels better, denies abdominal pain and states her abdomen is less distended Hida Scan 06/28/2017: Filling of the gallbladder excludes acute cystic duct obstruction. No biliary enteric transit of tracer after 150 minutes of imaging suspicious for CBD obstruction. GI: Abdominal Pain, resolving Hida scan suspicious for CBD obstruction ERCP today with stone removal, for lap jeny in a.m. GI and surgery following Trend Lfts, monitor labs Trend bilirubin Control pain with morphine Protonix IV BID On Ceftriaxone and Flagyl Blood cultures pending Hepatitis panel F.E.N. Fluids: LR Electrolytes: monitor and replete Nutrition: clears for dinner, then NPO for surgery tomorrow Prophylaxis: DVT: SCDs GI: Protonix Disposition: full code. Visit type - Emergency Visit Emergency Visit: Yes ED Registration Date: 06/27/17 Care time: The patient presented to the Emergency Department on the above date and was hospitalized for further evaluation of their emergent condition. - New Patient This patient is new to me today: No - Critical Care Critical Care patient: No - Discharge Referral Referred to [facility] Med P.C.: No
--- NOTE | 2017-06-29 10:19 | PN ---
Progress Note (short form) - Note Progress Note: Resting comfortably. Denies n/v/f/c, CP or SOB. HIDA: GB identified but no enteric tracer observed indicated most likely a distal cbd obstruction. Last Vital Signs Temp Pulse Resp BP Pulse Ox 98.1 F 70 16 124/51 97 06/29/17 09:40 06/29/17 09:40 06/29/17 09:40 06/29/17 09:40 06/28/17 21:00 CBC, BMP 06/29/17 06:45 06/29/17 06:45 TRENDS 06/27/17 06/28/17 06/28/17 06/29/17 17:40 06:30 06:30 06:45 Total Bilirubin 2.4 H D 4.1 H D 2.8 AST 504 H 402 H 131 ALT 548 H 722 H 524 Alkaline Phosphatase 86 131 H 136 Total Amylase 65 Lipase 216 221 Problem List - Problems (1) Choledocholithiasis Assessment/Plan: GI --> ERCP 2/ If above procedure successful, scheduled for Lap Lexis/possible open 2 Medical optimization Type and screen Above discussed with Dr. Butler and agrees Code(s): K80.50 - CALCULUS OF BILE DUCT W/O CHOLANGITIS OR CHOLECYST W/O OBST (2) Cholelithiasis Code(s): K80.20 - CALCULUS OF GALLBLADDER W/O CHOLECYSTITIS W/O OBSTRUCTION
[2017-06-29] MEDS ORDERED: INDOMETHACIN 50 MG RECTAL SUPPOSITORY PR STA (10:46)
[2017-06-29] MEDS ORDERED: LIDOCAINE HCL 2% 100 MG/5 ML DISP.SYRIN ONE (10:59)
[2017-06-29] MEDS ORDERED: PROPOFOL 20 ML ONE ×4 (10:59)
[2017-06-29] MEDS ORDERED: MIDAZOLAM HCL 2 MG/2 ML SINGLE DOSE VIAL ONE (10:59)
[2017-06-29] MEDS ORDERED: ONDANSETRON 4 MG/2 ML VIAL ONE ×2 (11:42)
[2017-06-29] MEDS ORDERED: INDOMETHACIN 50 MG RECTAL SUPPOSITORY PR ONE (12:32)
[2017-06-29] MEDS: LACTATED RINGERS SOLUTION 1000 ML INFUS.BAG IV SCH ×2 (17:57)
[2017-06-30] MEDS: LACTATED RINGERS SOLUTION 1000 ML INFUS.BAG IV SCH ×3 (00:21→12:36)
[2017-06-30 08:19] LABS: BASO % 0.4 % (0-2.0); EOS % 3.5 % (0-4.5); HEMATOCRIT 38.2 % (32.4-45.2); HEMOGLOBIN 13.1 GM/dL (10.7-15.3); LYMPH % 18.6 % (8-40); MCH 32.8 pg (25.7-33.7); MCHC 34.4 g/dl (32.0-36.0); MEAN CELL VOLUME 95.2 fl (80-96); MEAN PLT VOLUME 7.8 fl (7.5-11.1); MONO % 5.8 % (3.8-10.2); NEUT % 71.7 % (42.8-82.8); PLATELET COUNT 278 K/MM3 (134-434); RBC 4.01 M/mm3 (3.60-5.2); RDW 12.2 % (11.6-15.6); WHITE BLOOD COUNT 6.9 K/mm3 (4.0-10.0)
[2017-06-30 08:21] LABS: CHLORIDE 103 mmol/L (98-107); POTASSIUM 3.8 mmol/L (3.5-5.1); SODIUM 139 mmol/L (136-145)
[2017-06-30 08:29] LABS: ALBUMIN 3.5 g/dl (3.4-5.0); ALK PHOS 140 U/L (45-117); ANION GAP 6 (8-16); BILIRUBIN,TOTAL 2.6 mg/dL (0.2-1.0); BLOOD UREA NITROGEN 6 mg/dL (7-18); CALCIUM 8.5 mg/dL (8.5-10.1); CO2 30 mmol/L (21-32); CREATININE 0.8 mg/dL (0.55-1.02); GLUCOSE,RANDOM 97 mg/dL (74-106); SGOT/AST 60 U/L (15-37); SGPT/ALT 374 U/L (12-78); TOT PROT 6.5 g/dl (6.4-8.2)
[2017-06-30] MEDS: PANTOPRAZOLE SODIUM 40 MG VIAL IVPUSH SCH (10:16)
[2017-06-30] MEDS: CEFTRIAXONE 1 G/50 ML PREMIX 50 ML IVPB SCH (10:16)
--- NOTE | 2017-06-30 10:47 | PN ---
Progress Note, Physician History of Present Illness: No events. Mild epigastric pain. No nausea, or vomiting. No melena, hematochezia , hematemesis, jaundice, fever. For cholecystectomy today - Current Medication List Current Medications: Active Medications Docusate Sodium (Colace -) 100 mg PO Q12H PRN PRN Reason: CONSTIPATION CEFTRIAXONE 1 G/50 ML PREMIX (Ceftriaxone 1 Gm-D5w Bag) 50 mls @ 100 mls/hr IVPB DAILY [facility] Last Admin: 06/30/17 10:16 Dose: 100 mls/hr Metronidazole (Flagyl 500mg Premixed Ivpb -) 500 mg in 100 mls @ 100 mls/hr IVPB Q8H-IV [facility] Last Admin: 06/30/17 10:16 Dose: 100 mls/hr Indomethacin (Indocin Suppository -) 100 mg DC ONCE [facility] Stop: 06/29/17 10:47 Lactated Ringer's (Lactated Ringers Solution) 250 ml IV Q60M [facility] Stop: 06/30/17 23:59 Last Admin: 06/30/17 05:07 Dose: 250 ml Morphine Sulfate (Morphine Injection -) 1 mg IVPUSH Q4H PRN PRN Reason: PAIN LEVEL 6-10 Last Admin: 06/29/17 14:03 Dose: 1 mg Ondansetron HCl (Zofran Injection) 4 mg IVPUSH Q4H PRN PRN Reason: NAUSEA AND/OR VOMITING Pantoprazole Sodium (Protonix Iv) 40 mg IVPUSH BID [facility] Last Admin: 06/30/17 10:16 Dose: 40 mg Senna (Senna -) 2 tab PO HS PRN PRN Reason: CONSTIPATION - Objective Vital Signs: Vital Signs Temperature 98.2 F 06/30/17 04:58 Pulse Rate 72 06/30/17 04:58 Respiratory Rate 20 06/30/17 04:58 Blood Pressure 137/79 06/30/17 04:58 O2 Sat by Pulse Oximetry (%) 98 06/29/17 21:00 Constitutional: Yes: Well Nourished, No Distress, Calm Eyes: Yes: Conjunctiva Clear. No: Sclera Icterus HENT: Yes: Atraumatic Neck: Yes: Supple Cardiovascular: Yes: Regular Rate and Rhythm Respiratory: Yes: Regular Gastrointestinal: Yes: Soft, Tenderness, Epigastrium. No: Tenderness, Rebound Neurological: Yes: Alert, Oriented Labs: CBC, BMP 06/30/17 06:00 06/30/17 06:00 INR, PTT INR 1.23 (0.82-1.09) H 06/28/17 06:30 CBCD WBC 6.9 K/mm3 (4.0-10.0) 06/30/17 06:00 RBC 4.01 M/mm3 (3.60-5.2) 06/30/17 06:00 Hgb 13.1 GM/dL (10.7-15.3) 06/30/17 06:00 Hct 38.2 % (32.4-45.2) 06/30/17 06:00 MCV 95.2 fl (80-96) 06/30/17 06:00 MCHC 34.4 g/dl (32.0-36.0) 06/30/17 06:00 RDW 12.2 % (11.6-15.6) 06/30/17 06:00 Plt Count 278 K/MM3 (134-434) 06/30/17 06:00 MPV 7.8 fl (7.5-11.1) 06/30/17 06:00 CMP Sodium 139 mmol/L (136-145) 06/30/17 06:00 Potassium 3.8 mmol/L (3.5-5.1) 06/30/17 06:00 Chloride 103 mmol/L (98-107) 06/30/17 06:00 Carbon Dioxide 30 mmol/L (21-32) 06/30/17 06:00 Anion Gap 6 (8-16) L 06/30/17 06:00 BUN 6 mg/dL (7-18) L 06/30/17 06:00 Creatinine 0.8 mg/dL (0.55-1.02) 06/30/17 06:00 Creat Clearance w eGFR > 60 (>60) 06/30/17 06:00 Calcium 8.5 mg/dL (8.5-10.1) 06/30/17 06:00 Total Bilirubin 2.6 mg/dL (0.2-1.0) H 06/30/17 06:00 AST 60 U/L (15-37) H 06/30/17 06:00 ALT 374 U/L (12-78) H 06/30/17 06:00 Alkaline Phosphatase 140 U/L (45-117) H 06/30/17 06:00 Total Protein 6.5 g/dl (6.4-8.2) 06/30/17 06:00 Albumin 3.5 g/dl (3.4-5.0) 06/30/17 06:00 Problem List - Problems (1) Elevated LFTs Code(s): R79.89 - OTHER SPECIFIED ABNORMAL FINDINGS OF BLOOD CHEMISTRY (2) Gallstone Code(s): K80.20 - CALCULUS OF GALLBLADDER W/O CHOLECYSTITIS W/O OBSTRUCTION Qualifiers: Cholecystitis presence: without cholecystitis Biliary obstruction: with biliary obstruction Qualified Code(s): K80.21 - Calculus of gallbladder without cholecystitis with obstruction (3) Leukocytosis Code(s): D72.829 - ELEVATED WHITE BLOOD CELL COUNT, UNSPECIFIED (4) Obesity (BMI 30.0-34.9) Code(s): E66.9 - OBESITY, UNSPECIFIED Assessment/Plan Cholelithiasis, choledololithiasis. S/p ERCP with sphincterotomy. Enzymes, ALP, bili noted. Lipase pending. Cholecystectomy planned for today by Sx Pt is anisa
[2017-06-30 10:56] LABS: LIPASE 347 U/L (73-393)
--- NOTE | 2017-06-30 11:03 | PN ---
Physical Exam: SUBJECTIVE: Patient seen and examined. She c/o mild TATE and epigastric pain. She tolerated ERCP 2/6. at bedside OBJECTIVE: Vital Signs Period Temp Pulse Resp BP Sys/Patel Pulse Ox Last 24 Hr 97.4 F-98.5 F 54-72 18-20 109-137/57-79 98-100 PE Neuro: alert, awake, cn 2-12intact Pulm: CTAB CV: s1 s2 rrr no mrg Abd: ruq-epigastric tenderness to palpation, abd soft nd Ext: warm, no le edema Laboratory Results - last 24 hr 06/29/17 06/29/17 06/30/17 05:59 23:01 06:00 WBC 6.9 RBC 4.01 Hgb 13.1 Hct 38.2 MCV 95.2 MCH 32.8 MCHC 34.4 RDW 12.2 Plt Count 278 MPV 7.8 Neutrophils % 71.7 Lymphocytes % 18.6 Monocytes % 5.8 Eosinophils % 3.5 Basophils % 0.4 Sodium Potassium Chloride Carbon Dioxide Anion Gap BUN Creatinine Creat Clearance w eGFR POC Glucometer 115 95 Random Glucose Calcium Total Bilirubin AST ALT Alkaline Phosphatase Total Protein Albumin Lipase Blood Type Antibody Screen 06/30/17 06/30/17 06/30/17 06:00 06:30 08:10 WBC RBC Hgb Hct MCV MCH MCHC RDW Plt Count MPV Neutrophils % Lymphocytes % Monocytes % Eosinophils % Basophils % Sodium 139 Potassium 3.8 Chloride 103 Carbon Dioxide 30 Anion Gap 6 L BUN 6 L Creatinine 0.8 Creat Clearance w eGFR > 60 POC Glucometer 98 Random Glucose 97 Calcium 8.5 Total Bilirubin 2.6 H AST 60 H ALT 374 H Alkaline Phosphatase 140 H Total Protein 6.5 Albumin 3.5 Lipase 347 Blood Type A POSITIVE Antibody Screen Negative Active Medications Generic Name Dose Route Start Last Admin Trade Name Freq PRN Reason Stop Dose Admin Docusate Sodium 100 mg 06/27/17 17:28 Colace - PO Q12H PRN CONSTIPATION CEFTRIAXONE 1 G/50 ML PREMIX 50 mls @ 100 mls/hr 06/27/17 17:30 06/30/17 10: 16 Ceftriaxone 1 Gm-D5w Bag IVPB 100 mls/hr DAILY [facility] Administration Metronidazole 500 mg in 100 mls @ 100 mls/hr 06/27/17 18:00 06/30/17 10:16 Flagyl 500mg Premixed Ivpb - IVPB 100 mls/hr Q8H-IV [facility] Administration Indomethacin 100 mg 06/29/17 10:46 Indocin Suppository - NE 06/29/17 10:47 ONCE STA Lactated Ringer's 250 ml 06/29/17 12:15 06/30/17 05:07 Lactated Ringers Solution IV 06/30/17 23:59 250 ml Q60M [facility] Administration Morphine Sulfate 1 mg 06/27/17 17:34 06/29/17 14:03 Morphine Injection - IVPUSH 1 mg Q4H PRN Administration PAIN LEVEL 6-10 Ondansetron HCl 4 mg 06/27/17 16:12 Zofran Injection IVPUSH Q4H PRN NAUSEA AND/OR VOMITING Pantoprazole Sodium 40 mg 06/27/17 22:00 06/30/17 10:16 Protonix Iv IVPUSH 40 mg BID [facility] Administration Senna 2 tab 06/27/17 17:28 Senna - PO HS PRN CONSTIPATION Assessment: 36 year old female with pmhx GERD and constipation admitted with RUQ abdominal pain, nausea and vomiting, abnormal LFTs. An abdominal u/s shows choledocholithiasis. Plan: 1. Choledocholithasis, cholecystitis - S/p ERCP 06/29 with sphincterotomy - For Cholecystectomy today - LFT's down trending - Continue ceftriaxone/flagyl - NPO - IVF - Surgery/GI on board 2. GERD - PPI 3. DVT - SCDs, start chemical AC if prolonged stay, pt is ambulatory Visit type - Emergency Visit Emergency Visit: Yes ED Registration Date: 06/27/17 Care time: The patient presented to the Emergency Department on the above date and was hospitalized for further evaluation of their emergent condition. - New Patient This patient is new to me today: Yes Date on this admission: 06/30/17 - Critical Care Critical Care patient: No
--- NOTE | 2017-06-30 11:16 | PN ---
Progress Note (short form) - Note Progress Note: Anesthesia postop note 36 y/o F s/p Mac anesthesia for ercp pod#1, vss, aaox3, no complaints no anesthesia complications
[2017-06-30] MEDS ORDERED: ALBUTEROL SO4 2.5/IPRATROPIUM 0.5 INH SOL 3 ML VIAL.NEB. NEB SCH (13:15)
[2017-06-30] MEDS ORDERED: BUPIVACAINE HCL/PF 0.5% (5MG/ML) 10 ML VIAL ONE (13:34)
[2017-06-30] MEDS ORDERED: PROPOFOL 20 ML ONE (13:38)
[2017-06-30] MEDS ORDERED: fentaNYL CITRATE 250 MCG/5 ML VIAL ONE (13:38)
[2017-06-30] MEDS ORDERED: MIDAZOLAM HCL 2 MG/2 ML SINGLE DOSE VIAL ONE (13:39)
[2017-06-30] MEDS ORDERED: ROCURONIUM BROMIDE 50 MG/5 ML VIAL ONE (13:39)
[2017-06-30] MEDS ORDERED: SUCCINYLCHOLINE CHLORIDE 200 MG/10 ML VIAL ONE (13:39)
[2017-06-30] MEDS ORDERED: ceFAZolin SODIUM 1 GM VIAL IVPB ONE (14:04)
[2017-06-30] MEDS ORDERED: DEXAMETHASONE SOD PHOSPHATE 4 MG/1 ML VIAL ONE (14:13)
[2017-06-30] MEDS ORDERED: GLYCOPYRROLATE 0.2 MG/1 ML VIAL ONE (15:03)
[2017-06-30] MEDS ORDERED: NEOSTIGMINE METHYLSULFATE 0.5 MG/ML - 10 ML MDV ONE (15:03)
[2017-06-30] MEDS ORDERED: BUPIVACAINE HCL/PF 0.5% (5MG/ML) 10 ML VIAL IJ ONE (15:12)
--- NOTE | 2017-06-30 15:13 | OP ---
Operative Note - Note: Operative Date: 06/30/17 Pre-Operative Diagnosis: cholelithiasis/choledocholithiasis Operation: laparoscopic cholecystectomy Findings: cholelithiasis Surgeon: Shon Butler Director Strategic Planning: Fabiana Puente Anesthesiologist/HOSPITAL CARRIER: Chato Chaudhari Anesthesia: General Specimens Removed: gallbladder and contents Estimated Blood Loss (mls): 15
--- NOTE | 2017-06-30 15:27 | SURG ---
Surgery Baggagemaster Note Baggagemaster: Fabiana Puente PA-C Date of Service: 06/30/17 Diagnosis: cholelithiasis/choledocholithiasis Procedure: laparoscopic cholecystectomy I was present for the entirety of the operative procedure. For further detail, please refer to operative report. Visit type - Case Type Case Type: ED Admission - Emergency Emergency Visit: Yes ED Registration Date: 06/27/17 Care time: The patient presented to the Emergency Department on the above date and was hospitalized for further evaluation of their emergent condition. - New patient This patient is new to me today: Yes Date on this admission: 06/30/17
[2017-06-30] MEDS ORDERED: HYDROmorphone HCL CARPU-JECT 1 MG/1 ML DISP.SYRIN IVPUSH PRN (15:36)
[2017-06-30] MEDS ORDERED: ONDANSETRON 4 MG/2 ML VIAL IVPUSH PRN ×2 (15:36→15:38)
[2017-06-30] MEDS ORDERED: DOCUSATE SODIUM 100 MG CAPSULE (FP) PO PRN (15:38)
[2017-06-30] MEDS ORDERED: SENNOSIDES 8.6MG TABLET (FP) PO PRN (15:38)
[2017-06-30] MEDS ORDERED: ELECTROLYTE-148 SOLN 1,000 ML IV SCH (15:45)
[2017-06-30] MEDS ORDERED: LACTATED RINGERS SOLUTION 1,000 ML/1,000 ML INFUS.BAG IV SCH (15:45)
[2017-06-30] MEDS ORDERED: HYDROmorphone HCL CARPU-JECT 2 MG/1 ML DISP.SYRIN IVPUSH PRN (16:07)
[2017-06-30] MEDS: KETOROLAC TROMETHAMINE 30 MG/1 ML VIAL IVPUSH PRN (16:15)
[2017-06-30] MEDS: MORPHINE SULFATE 10 MG/1 ML *VIAL IVPUSH PRN (19:15)
[2017-06-30] MEDS: oxyCODONE HCL 5 MG TABLET PO PRN (20:22)
[2017-06-30] MEDS: LACTATED RINGERS SOLUTION 1,000 ML IV SCH (20:23)
[2017-06-30] MEDS ORDERED: BUDESONIDE 0.5 MG/2 ML INH SUSP VIAL NEB ONE (21:23)
[2017-06-30] MEDS: HEPARIN NA (PORCINE) 5,000 UNITS/ML 1ML VIAL SQ SCH (21:51)
[2017-07-01] MEDS: MORPHINE SULFATE 10 MG/1 ML *VIAL IVPUSH PRN ×3 (00:14→12:06)
[2017-07-01] MEDS: oxyCODONE HCL 5 MG TABLET PO PRN ×3 (03:26→21:13)
[2017-07-01] MEDS: LACTATED RINGERS SOLUTION 1,000 ML IV SCH (03:27)
[2017-07-01] MEDS: KETOROLAC TROMETHAMINE 30 MG/1 ML VIAL IVPUSH PRN (05:59)
[2017-07-01 07:40] LABS: BASO % 0.1 % (0-2.0); HEMATOCRIT 38.8 % (32.4-45.2); HEMOGLOBIN 13.1 GM/dL (10.7-15.3); LYMPH % 4.6 % (8-40); MCH 32.2 pg (25.7-33.7); MCHC 33.8 g/dl (32.0-36.0); MEAN CELL VOLUME 95.4 fl (80-96); MEAN PLT VOLUME 7.7 fl (7.5-11.1); MONO % 5.6 % (3.8-10.2); NEUT % 89.7 % (42.8-82.8); PLATELET COUNT 281 K/MM3 (134-434); RBC 4.07 M/mm3 (3.60-5.2); RDW 12.4 % (11.6-15.6); WHITE BLOOD COUNT 12.4 K/mm3 (4.0-10.0)
--- NOTE | 2017-07-01 08:24 | PN ---
Progress Note (short form) - Note Progress Note: POD#1 Pt with pain overnight which improved with IV medications. No nausea or emesis and she tolerated clears this am. Vital Signs Period Temp Pulse Resp BP Sys/Patel Pulse Ox Last 24 Hr 98.1 F-99.0 F 58-80 11-22 111-144/50-75 96-100 GEN: appears comfortable ABD: soft, non-disteded, Inc tenderness. Inc c/d/i LE: no calf tenderness or swelling noted b/l CBC, BMP 07/01/17 06:00 CHEM/LFTs-pending A/P: 36 yo female s/p lap jeny, POD#1 with ERCP/stone extraction prior to surgery f/u LFTS this am, if improving and pt continues to tolerate clears may advance to a low fat diet No IV abx/oral antibiotics needed DVT ppx with ambulation, Heparin SQ and SCDs <Fabiana Puente - Last Filed: 07/01/17 08:19> - Note Progress Note: Attending Surgeon POD #1 Patient seen and evaluated; had pain last night; since gone; exam unremarkable; LFT's and bili elevated this AM; ? passed retained stone vs. other; will monitor and w/u appropriately Shon Butler MD FACS <Shon Butler - Last Filed: 07/01/17 10:39>
[2017-07-01 08:45] LABS: CHLORIDE 101 mmol/L (98-107); SODIUM 137 mmol/L (136-145)
--- NOTE | 2017-07-01 08:48 | PN ---
Progress Note (short form) - Note Progress Note: Anesthesia POD#1 S/P Laproscopic Cholecystectomy under GA VSS,pain is under control,no N/V seen. No complications to anesthesia seen. Katie Johnson MD.
[2017-07-01 08:57] LABS: ALBUMIN 3.4 g/dl (3.4-5.0); ALK PHOS 179 U/L (45-117); ANION GAP 9 (8-16); BILIRUBIN,TOTAL 5.3 mg/dL (0.2-1.0); BLOOD UREA NITROGEN 8 mg/dL (7-18); CALCIUM 8.2 mg/dL (8.5-10.1); CO2 27 mmol/L (21-32); CREATININE 0.8 mg/dL (0.55-1.02); GLUCOSE,RANDOM 127 mg/dL (74-106); SGOT/AST 118 U/L (15-37); SGPT/ALT 325 U/L (12-78); TOT PROT 6.2 g/dl (6.4-8.2)
[2017-07-01] MEDS: HEPARIN NA (PORCINE) 5,000 UNITS/ML 1ML VIAL SQ SCH ×2 (09:39→21:13)
[2017-07-01] MEDS: PANTOPRAZOLE SODIUM 40 MG VIAL IVPUSH SCH (09:39)
--- NOTE | 2017-07-01 09:49 | OP ---
DATE OF OPERATION: 06/30/2017 PREOPERATIVE DIAGNOSES: Cholelithiasis and choledocholithiasis. POSTOPERATIVE DIAGNOSES: Cholelithiasis and choledocholithiasis. PROCEDURE: Laparoscopic cholecystectomy. SURGEON: Shon Butler MD EQUIPMENT MONITOR PHOTOTYPESETTING: Fabiana Puente PA-C ANESTHESIA: General. OPERATIVE FINDINGS: There was cholelithiasis. The rest of the findings were unremarkable. DESCRIPTION OF PROCEDURE: The patient was placed on the operating table in the supine position. After the induction of general anesthesia, the patient's abdomen was prepped with ChloraPrep and draped in sterile fashion. A timeout was taken, and pneumoperitoneum was established above the umbilicus using a Veress needle to an intraabdominal pressure of 15 mmHg. A 5-mm supraumbilical port and two lateral 5-mm ports and the subxiphoid 12-mm port were then placed. The gallbladder was placed on cephalad and lateral traction, and dissection was begun in the hepatocystic triangle. The peritoneum over the neck of the gallbladder was opened using a combination of blunt dissection and electrocautery. The cystic duct was identified coursing from the neck of the gallbladder distally to the common bile duct. It was dissected proximally and distally for length. Similarly, the artery was identified and dissected proximally and distally for length. Critical view of safety was then taken, and the duct and artery sequentially clipped twice distally with large hemoclips and proximally as well. The duct and artery were then sequentially divided using the EndoShears. Hemostasis was checked for and noted to be good, and then, the gallbladder was removed from the liver bed in a retrograde fashion using electrocautery. Prior to removal from the edge of the liver, copious irrigation was carried out with normal saline and hemostasis again verified. The gallbladder was removed from the edge of the liver, placed in a specimen retrieval bag and brought out through the subxiphoid port. Pneumoperitoneum was re-established. Hemostasis verified again and then all ports removed under laparoscopic vision without evidence of bleeding from the port sites. All port sites were infiltrated with 0.50% Marcaine and the skin edges closed with 4-0 Monocryl in a subcuticular continuous fashion, followed by Steri-Strips and Band-Aid dressings. The patient was then aroused from general anesthesia and transferred to the postanesthesia care unit in stable condition, awake and alert. ESTIMATED BLOOD LOSS: 15 mL REPLACEMENTS: Crystalloid. DRAINS: None. SPECIMENS: Gallbladder and contents to Pathology. I, Shon Butler MD, was physically present in the operating room from the time the patient was placed on the operating table until she was transferred to the postanesthesia care unit in my accompaniment. MD DIO Ravi/[id number]
[2017-07-01] MEDS ORDERED: PANTOPRAZOLE SODIUM 40 MG VIAL IVPUSH SCH (10:00)
--- NOTE | 2017-07-01 15:25 | PN ---
Physical Exam: SUBJECTIVE: Patient seen and examined. She c/o epigastric burning. denies nausea , vomiting. OBJECTIVE: Vital Signs Period Temp Pulse Resp BP Sys/Patel Pulse Ox Last 24 Hr 98.0 F-98.8 F 58-82 11-22 111-144/61-81 96-100 PE Neuro: alert, awake, cn 2-12intact Pulm: diminished l base crackles CV: s1 s2 rrr no mrg Abd: incisions CDI, epigastric tenderness Ext: warm, no le edema Laboratory Results - last 24 hr 07/01/17 07/01/17 07/01/17 01:16 06:00 06:00 WBC 12.4 H D RBC 4.07 Hgb 13.1 Hct 38.8 MCV 95.4 MCH 32.2 MCHC 33.8 RDW 12.4 Plt Count 281 MPV 7.7 Neutrophils % 89.7 H D Lymphocytes % 4.6 L D Monocytes % 5.6 Eosinophils % 0.0 D Basophils % 0.1 Sodium 137 Potassium 4.0 Chloride 101 Carbon Dioxide 27 Anion Gap 9 BUN 8 Creatinine 0.8 Creat Clearance w eGFR > 60 POC Glucometer 100 Random Glucose 127 H Calcium 8.2 L Total Bilirubin 5.3 H D AST 118 H ALT 325 H Alkaline Phosphatase 179 H Total Protein 6.2 L Albumin 3.4 Active Medications Generic Name Dose Route Start Last Admin Trade Name Freq PRN Reason Stop Dose Admin Acetaminophen 650 mg 06/30/17 15:35 Tylenol - PO Q6H PRN PAIN LEVEL 1 - 3 Docusate Sodium 100 mg 06/30/17 15:38 Colace - PO Q12H PRN CONSTIPATION Heparin Sodium (Porcine) 5,000 unit 06/30/17 22:00 07/01/17 09:39 Heparin - SQ 5,000 unit BID SAMPSON Administration Ketorolac Tromethamine 30 mg 06/30/17 15:34 07/01/17 05:59 Toradol Injection - IVPUSH 07/05/17 17:59 30 mg Q8H-IV PRN Administration PAIN LEVEL 1 - 3 Morphine Sulfate 1 mg 06/30/17 15:38 07/01/17 12:06 Morphine Injection - IVPUSH 1 mg Q4H PRN Administration PAIN LEVEL 7 - 10 Ondansetron HCl 4 mg 06/30/17 15:36 07/01/17 12:06 Zofran Injection IVPUSH 4 mg Q6H PRN Administration NAUSEA AND/OR VOMITING Ondansetron HCl 4 mg 06/30/17 15:38 Zofran Injection IVPUSH Q4H PRN NAUSEA AND/OR VOMITING Oxycodone HCl 5 mg 06/30/17 15:35 07/01/17 03:26 Roxicodone - PO 5 mg Q6H PRN Administration PAIN LEVEL 4 - 6 Pantoprazole Sodium 40 mg 07/01/17 10:00 07/01/17 09:39 Protonix Iv IVPUSH 40 mg DAILY SAMPSON Administration Senna 2 tab 06/30/17 15:38 Senna - PO HS PRN CONSTIPATION Assessment: 36 year old female with pmhx GERD and constipation admitted with RUQ abdominal pain, nausea and vomiting, abnormal LFTs. An abdominal u/s shows choledocholithiasis. Plan: 1. Choledocholithasis, cholecystitis - Cholecystectomy 06/30 - S/p ERCP 06/29 with sphincterotomy - Elevated LFTs, bili elevated ?retained stone - Trend LFTs - Continue ceftriaxone/flagyl 2. GERD - PPI 3. DVT - SCDs, Visit type - Emergency Visit Emergency Visit: Yes ED Registration Date: 06/27/17 Care time: The patient presented to the Emergency Department on the above date and was hospitalized for further evaluation of their emergent condition. - New Patient This patient is new to me today: No - Critical Care Critical Care patient: No
[2017-07-01] MEDS ORDERED: MAG HYDROX/AL HYDROX/SIMETH 30 ML UNIT-DOSE CUP PO ONE (15:41)
[2017-07-01] MEDS ORDERED: MAG HYDROX/AL HYDROX/SIMETH 30 ML UNIT-DOSE CUP PO PRN (15:41)
[2017-07-01] MEDS: ACETAMINOPHEN 325 MG TABLET (FP) PO PRN ×2 (15:47→21:14)
[2017-07-02 08:06] LABS: BASO % 0.4 % (0-2.0); EOS % 2.2 % (0-4.5); HEMATOCRIT 37.1 % (32.4-45.2); HEMOGLOBIN 12.8 GM/dL (10.7-15.3); LYMPH % 28.2 % (8-40); MCH 33.1 pg (25.7-33.7); MCHC 34.5 g/dl (32.0-36.0); MEAN CELL VOLUME 95.9 fl (80-96); MEAN PLT VOLUME 7.7 fl (7.5-11.1); NEUT % 62.2 % (42.8-82.8); PLATELET COUNT 260 K/MM3 (134-434); RBC 3.87 M/mm3 (3.60-5.2); RDW 12.4 % (11.6-15.6); WHITE BLOOD COUNT 5.9 K/mm3 (4.0-10.0)
[2017-07-02 08:10] LABS: ALBUMIN 3.2 g/dl (3.4-5.0); ANION GAP 5 (8-16); BILIRUBIN,DIRECT 2.8 mg/dL (0.0-0.2); BILIRUBIN,TOTAL 4.3 mg/dL (0.2-1.0); BLOOD UREA NITROGEN 9 mg/dL (7-18); CALCIUM 8.5 mg/dL (8.5-10.1); CHLORIDE 102 mmol/L (98-107); CO2 30 mmol/L (21-32); CREATININE 0.7 mg/dL (0.55-1.02); GLUCOSE,RANDOM 103 mg/dL (74-106); POTASSIUM 3.9 mmol/L (3.5-5.1); SGOT/AST 114 U/L (15-37); SGPT/ALT 320 U/L (12-78); SODIUM 137 mmol/L (136-145); TOT PROT 6.1 g/dl (6.4-8.2)
[2017-07-02 08:11] LABS: ALK PHOS 214 U/L (45-117)
--- NOTE | 2017-07-02 09:14 | PN ---
Progress Note (short form) - Note Progress Note: Attending Surgeon POD #2 No c/o; tolerating diet VSS AF abdomen-soft; flat and non tender; port sites c/d/i WBC-nl; bili down LFT's about the same IMP: r/o retained cbd stone PLAN: MRCP; continue same tx; d/w patient.
[2017-07-02] MEDS: HEPARIN NA (PORCINE) 5,000 UNITS/ML 1ML VIAL SQ SCH ×2 (09:25→21:02)
[2017-07-02] MEDS: PANTOPRAZOLE SODIUM 40 MG VIAL IVPUSH SCH (09:25)
--- NOTE | 2017-07-02 14:33 | PN ---
Physical Exam: SUBJECTIVE: Patient seen and examined. Abd burning resolved, + BM and flatulence , c/o upper eye lid swelling. OBJECTIVE: Vital Signs Period Temp Pulse Resp BP Sys/Patel Pulse Ox Last 24 Hr 97.2 F-98.3 F 60-80 18-20 107-126/64-78 98-99 PE Neuro: alert, awake, cn 2-12intact HEENT: upper eye lid swelling, no drainage, no erythema, sclera/conjunctive clear Pulm: CTAB CV: s1 s2 rrr no mrg Abd: incisions CDI, epigastric tenderness Ext: warm, no le edema Laboratory Results - last 24 hr 07/02/17 07/02/17 06:30 06:30 WBC 5.9 D RBC 3.87 Hgb 12.8 Hct 37.1 MCV 95.9 MCH 33.1 MCHC 34.5 RDW 12.4 Plt Count 260 MPV 7.7 Neutrophils % 62.2 D Lymphocytes % 28.2 D Monocytes % 7.0 Eosinophils % 2.2 D Basophils % 0.4 D Sodium 137 Potassium 3.9 Chloride 102 Carbon Dioxide 30 Anion Gap 5 L BUN 9 Creatinine 0.7 Creat Clearance w eGFR > 60 POC Glucometer Random Glucose 103 Calcium 8.5 Total Bilirubin 4.3 H Direct Bilirubin 2.8 H AST 114 H ALT 320 H Alkaline Phosphatase 214 H Total Protein 6.1 L Albumin 3.2 L Active Medications Generic Name Dose Route Start Last Admin Trade Name Freq PRN Reason Stop Dose Admin Acetaminophen 650 mg 06/30/17 15:35 07/01/17 21:14 Tylenol - PO 650 mg Q6H PRN Administration PAIN LEVEL 1 - 3 Al Hydroxide/Mg Hydroxide 30 ml 07/01/17 15:41 Mylanta Oral Suspension - PO Q6H PRN DYSPEPSIA Docusate Sodium 100 mg 06/30/17 15:38 Colace - PO Q12H PRN CONSTIPATION Heparin Sodium (Porcine) 5,000 unit 06/30/17 22:00 07/02/17 09:25 Heparin - SQ 5,000 unit BID SAMPSON Administration Ketorolac Tromethamine 30 mg 06/30/17 15:34 07/01/17 05:59 Toradol Injection - IVPUSH 07/05/17 17:59 30 mg Q8H-IV PRN Administration PAIN LEVEL 1 - 3 Morphine Sulfate 1 mg 06/30/17 15:38 07/01/17 12:06 Morphine Injection - IVPUSH 1 mg Q4H PRN Administration PAIN LEVEL 7 - 10 Ondansetron HCl 4 mg 06/30/17 15:36 07/01/17 12:06 Zofran Injection IVPUSH 4 mg Q6H PRN Administration NAUSEA AND/OR VOMITING Ondansetron HCl 4 mg 06/30/17 15:38 Zofran Injection IVPUSH Q4H PRN NAUSEA AND/OR VOMITING Oxycodone HCl 5 mg 06/30/17 15:35 07/01/17 21:13 Roxicodone - PO 5 mg Q6H PRN Administration PAIN LEVEL 4 - 6 Pantoprazole Sodium 40 mg 07/01/17 10:00 07/02/17 09:25 Protonix Iv IVPUSH 40 mg DAILY SAMPSON Administration Senna 2 tab 06/30/17 15:38 Senna - PO HS PRN CONSTIPATION Assessment: 36 year old female with pmhx GERD and constipation admitted with RUQ abdominal pain, nausea and vomiting, abnormal LFTs. An abdominal u/s shows choledocholithiasis. Plan: 1. Choledocholithasis, cholecystitis - Cholecystectomy 06/30 - S/p ERCP 06/29 with sphincterotomy - LFTs, bili remain elevated - Concern for retained stone - Abd MRI today - Continue ceftriaxone/flagyl - d/w Surgery 2. GERD - PPI 3. DVT - SCDs Visit type - Emergency Visit Emergency Visit: Yes ED Registration Date: 06/27/17 Care time: The patient presented to the Emergency Department on the above date and was hospitalized for further evaluation of their emergent condition. - New Patient This patient is new to me today: No - Critical Care Critical Care patient: No
[2017-07-02] MEDS ORDERED: LORATADINE 10 MG TABLET PO ONE (14:35)
--- NOTE | 2017-07-02 14:47 | PATH ---
Surgical Pathology Report Patient Name: JUANPABLO STUART [facility]. Rec. #: [id number] /Age/Gender: 1980 (Age: 36) / F Account: [id number] Location: [facility] MED/SURG Taken: 06/30/2017 Received: 07/01/2017 Reported: 07/02/2017 Physicians: Catie Pepe Specimen(s) Received GALLBLADDER Clinical History Acute cholecystitis Final Diagnosis GALLBLADDER, CHOLECYSTECTOMY: CHRONIC CHOLECYSTITIS, CHOLESTEROLOSIS, AND CHOLELITHIASIS. Electronically Signed Crow Rawls M.D. Gross Description Received in formalin, labeled "gallbladder," is an 8.5 x 2.6 x 2.5 cm. gallbladder with a 0.2 cm. in length portion of cystic duct attached. There is a 1.0 cm in greatest dimension periductal lymph node present. The outer surface is turner green and varies from smooth to shaggy. The lumen contains green black, tenacious bile as well as multiple yellow, spherical choleliths averaging 0.4 cm in diameter. The mucosa is green and velvety. The wall of the gallbladder averages 0.2 cm. in thickness. Supervisor [employer] D[employer] sections are submitted in one cassette. 07/01/201707/01/2017
[2017-07-03 08:24] LABS: ALBUMIN 3.4 g/dl (3.4-5.0); ANION GAP 6 (8-16); BLOOD UREA NITROGEN 11 mg/dL (7-18); CALCIUM 8.8 mg/dL (8.5-10.1); CHLORIDE 101 mmol/L (98-107); CO2 32 mmol/L (21-32); CREATININE 0.8 mg/dL (0.55-1.02); GLUCOSE,RANDOM 102 mg/dL (74-106); SGOT/AST 81 U/L (15-37); SGPT/ALT 299 U/L (12-78); SODIUM 139 mmol/L (136-145)
[2017-07-03 08:26] LABS: ALK PHOS 238 U/L (45-117); BILIRUBIN,TOTAL 1.7 mg/dL (0.2-1.0); TOT PROT 6.6 g/dl (6.4-8.2)
[2017-07-03] MEDS: HEPARIN NA (PORCINE) 5,000 UNITS/ML 1ML VIAL SQ SCH (10:41)
[2017-07-03] MEDS: PANTOPRAZOLE SODIUM 40 MG VIAL IVPUSH SCH (10:41)
[2017-07-03 14:09] VITALS: BP 121/76; PULSE 71; TEMP 98
--- NOTE | 2017-07-03 14:18 | DS ---
Physical Exam: SUBJECTIVE: Patient seen and examined OBJECTIVE: Vital Signs Period Temp Pulse Resp BP Sys/Patel Pulse Ox Last 24 Hr 98 F-98.5 F 61-71 17-20 105-124/61-81 99 PHYSICAL EXAM GENERAL: The patient is awake, alert, and fully oriented, in no acute distress. HEAD: Normal with no signs of trauma. EYES: PERRL, extraocular movements intact, sclera anicteric, conjunctiva clear. ENT: Ears normal, nares patent, oropharynx clear without exudates, moist mucous membranes. NECK: Trachea midline, full range of motion, supple. LUNGS: Breath sounds equal, clear to auscultation bilaterally, no wheezes, no crackles, no accessory muscle use. HEART: Regular rate and rhythm, S1, S2 without murmur, rub or gallop. ABDOMEN: Soft, nontender, nondistended, normoactive bowel sounds, no guarding, no rebound, no hepatosplenomegaly, no masses. EXTREMITIES: 2+ pulses, warm, well-perfused, no edema. NEUROLOGICAL: Cranial nerves II through XII grossly intact. Normal speech, gait not observed. PSYCH: Normal mood, normal affect. SKIN: Warm, dry, normal turgor, no rashes or lesions noted. LABS Laboratory Results - last 24 hr 07/02/17 07/02/17 07/02/17 12:31 16:28 22:14 Sodium Potassium Chloride Carbon Dioxide Anion Gap BUN Creatinine Creat Clearance w eGFR POC Glucometer 122 135 117 Random Glucose Calcium Total Bilirubin Direct Bilirubin AST ALT Alkaline Phosphatase Total Protein Albumin 07/03/17 07/03/17 05:27 06:00 Sodium 139 Potassium 4.0 Chloride 101 Carbon Dioxide 32 Anion Gap 6 L BUN 11 Creatinine 0.8 Creat Clearance w eGFR > 60 POC Glucometer 185 Random Glucose 102 Calcium 8.8 Total Bilirubin 1.7 H D Direct Bilirubin 1.0 H AST 81 H ALT 299 H Alkaline Phosphatase 238 H Total Protein 6.6 Albumin 3.4 HOSPITAL COURSE: Date of Admission:06/27/17 Date of Discharge: 07/03/17 Discharge Summary Reason For Visit: ABDOMINAL PAIN Current Active Problems Abdominal pain (Acute) Choledocholithiasis (Acute) Cholelithiasis (Acute) Elevated LFTs (Acute) Gallstone (Acute) Leukocytosis (Acute) Sepsis (Acute) Condition: Stable - Instructions Diet, Activity, Other Instructions: Dr. Butler Discharge Instructions Dear JUANPABLO STAURT, Post Operative Instructions Physical activity Resume your normal everyday activity as tolerated no heavy lifting or exercise until seen by your surgeon. You may walk unlimited amounts of and climb stairs. You may resume driving the car when you feel safe and comfortable behind the wheel. Wound care If you have a bandage, leave it on, and keep dry for 48 - 72 hours. After that time discard the outer bandage. If there are tapes on the skin under the outer bandage, leave them in place. They will peel off in the next 7 to 10 days. Do Not peel them off. You may shower 2 days after surgery. If there are tapes present on the skin, they can get wet. Diet There are no dietary restrictions. Eat healthy, high-fiber foods. Drink 6 to 8 glasses of liquid each day. This will assist in keeping your bowels are regular. Pain management You may take Tylenol or acetaminophen or Ibuprofen (for example, Motrin, Advil etc.) Any pain prescription medication ordered should be taken as prescribed for moderate to severe pain. Call Dr. Butler for any of the following: Severe pain not relieved by medication Fever of 101 or higher Excessive bleeding or drainage on dressing Inability to urinate Call the office at [phone] for a post operative appointment in 7 - 10 days. Referrals: Shon Butler MD [Staff Physician] - Romie Olivarez MD [Primary Care Provider] - Disposition: HOME - Home Medications Comprehensive Discharge Medication List: Ambulatory Orders Loratadine [Allergy Relief] 10 mg PO PRN 06/27/17 Acetaminophen [Tylenol .Regular Strength -] 650 mg PO Q6H PRN tablet 07/03/17 This patient is new to me today: Yes Date on this admission: 07/03/17 Emergency Visit: Yes ED Registration Date: 06/27/17 Care time: The patient presented to the Emergency Department on the above date and was hospitalized for further evaluation of their emergent condition. Critical Care patient: No - Discharge Referral Referred to [facility] Med [facility] No
== END 2017-07-03 15:00 | disposition home or self-care (01) | DRG 263 ==
LOC: JER 10:26 → JERBED 15:59 → J7W 18:34
PROVIDERS: ADMIT Hospitalist; ATTEND Nurse Practitioner Family
PROC: 0FC98ZZ Extirpation of Matter from Common Bile Duct, Via Natural or Artificial Opening Endoscopic (ICD-10-PCS; 2017-06-29)
PROC: BF10YZZ Fluoroscopy of Bile Ducts using Other Contrast (ICD-10-PCS; 2017-06-29)
PROC: 0FT44ZZ Resection of Gallbladder, Percutaneous Endoscopic Approach (ICD-10-PCS; principal; 2017-06-30 17:00)
DX: K80.62 Calculus of gallbladder and bile duct with acute cholecystitis without obstruction (principal); K21.9 Gastro-esophageal reflux disease without esophagitis; E66.9 Obesity, unspecified; Z68.30 Body mass index [BMI] 30.0-30.9, adult; D72.829 Elevated white blood cell count, unspecified; R17 Unspecified jaundice; E87.2 Acidosis
CPT/HCPCS: 36415; 71045-TC; 74181-TC; 74330-TC; 76000-TC-FY; 76705-TC; 78226-TC; 80053; 80074; 80076; 80307; 81003; 81015; 82150; 82248; 82803; 82962; 83036; 83605; 83690; 83735; 84100; 84703; 85025; 85610; 86850; 86900; 86901; 87040; 87086; 88304-TC; 94760; 99284-25; A9537; J1644